=== PATIENT | male | born 1990 | race Caucasian/White ===

== ENCOUNTER 2016-09-20 08:41 | Emergency (ER) | payer OTHER ==
[~2016-09-20] VITALS: Ht 177.8 cm; Wt 99.8 kg
[2016-09-20] MEDS ORDERED: ALBU83IN INH (08:51)
[2016-09-20] MEDS ORDERED: NAPROXEN 250 MG TAB PO ONE (09:00)
--- NOTE | 2016-09-20 10:20 | REP ---
SCROTAL ULTRASOUND: Real-time sonographic evaluation of scrotum and contents performed. Testicles are normal in size and echotexture, right testicle measuring 5.3 x 2.3 x 2.9 cm and left testicle 5.2 x 2.7 x 3.2 cm. There is no testicular mass or torsion. Blood flow is seen in each testicle with duplex Doppler evaluation, resistive index right testicle 0.48 and left testicle 0.47. Cyst in the right epididymis measures 2 mm and a cyst in the left epididymis measures 2 mm. No fluid collection is seen. IMPRESSION: No testicular mass or torsion. Signed by Brody Cadet MD 09/21/2016 04:39 P
[2016-09-20] MEDS ORDERED: INDO25CA PO (10:42)
[2016-09-20 10:50] VITALS: BP 128/70
== END 2016-09-20 10:52 | disposition home or self-care (01) ==
LOC: M ED 10:17
DX: R10.30 Lower abdominal pain, unspecified (principal); Z88.2 Allergy status to sulfonamides

== ENCOUNTER → 2018-01-04 | Outpatient (REF) | payer OTHER ==
[2018-01-04 13:31] LABS: APPEARANCE, URINE TURBID (CLEAR); BACTERIA, URINE AUTO NEGATIVE (NEGATIVE); BILIRUBIN, URINE AUTO NEGATIVE (NEGATIVE); BLOOD, URINE BLOOD NEGATIVE (NEGATIVE); COLOR, URINE YELLOW (YELLOW); GLUCOSE, URINE (UA) AUTO NEGATIVE (NEGATIVE); KETONE, URINE AUTO TRACE mg/dL (NEGATIVE); LEUKOCYTE ESTERASE, URINE AUTO NEGATIVE (NEGATIVE); MUCUS, URINE SMALL (NEGATIVE); NITRITE, URINE AUTO NEGATIVE (NEGATIVE); PROTEIN, URINE AUTO NEGATIVE (NEGATIVE); RBC, URINE AUTO 1 /HPF (0-3); SPECIFIC GRAVITY URINE AUTO 1.021 (1.002-1.035); SQUAMOUS EPITHELIAL CELL UR AU 0 /HPF (0-6); URIC ACID CRYSTALS SMALL; WBC, URINE AUTO 0 /HPF (0-3)
== END ==
LOC: M SMT 12:51
DX: N50.819 Testicular pain, unspecified (principal)